=== PATIENT | female | born 1955 | race Caucasian/White ===

== ENCOUNTER 2021-03-03 10:39 | Emergency (ER) | payer OTHER ==
[~2021-03-03] VITALS: Ht 170.2 cm; Wt 131.1 kg
[~2021-03-03 10:39] MED LIST: ABILIFY10 MG PO; ABILIFY15 MG PO; ADVAIR 250-501 EACH; ADVAIR 250-501 EACH INH; ADVAIR 500-501 EACH INH; ADVAIR HFA115 MCG/21 INH; ALPRAZOLAM 0.0.25 M1 PO; ALPRAZOLAM2 MG PO; AMBIEN 10 MG TA10 MG PO; AMBIEN 5 MG TABL5 M1 PO; APAP500 PO; ASA81BEC PO; ASPIRIN EC81 M1 PO; CARISOPRODOL 3350 M1 PO; CARISOPRODOL 3350 MG; CARISOPRODOL 3350 MG PO; CLONAZEPAM 1 MG1 M1 PO; COLACE100 MG PO; COMPAZINE10 M1 PO; COMPAZINE10 MG PO; CRESTOR10 MG PO; DEPAKOTE ER250 MG PO; DEPAKOTE250 MG PO; DEPAKOTE500 MG PO; DESYREL150 MG PO; DICLOFENAC SODI75 MG PO; DIVALPROEX SOD250 MG PO; DUONEB 2.5-0.5 M3 ML INH; EFFEXOR XR150 MG PO; ENDOCET 10-3251 EACH PO; FENTANYL 1100 MCG/HR; FENTANYL 1100 MCG/HR TD; FENTANYL PA12 MCG/HR TP; FENTANYL PATCH75 MCG TP; FENTANYL PATCH75 MCG TRANSDERM; FENTANYL TOP; FLAGYL500 MG PO; GLUCOPHAGE500 MG PO; IBUPROFEN 600600 M1 PO; IMITREX 50 MG T50 M1 PO; IMITREX 50 MG T50 MG PO; IMITREX100 MG; LAMICTAL XR100 MG PO; LAMICTAL100 MG; LEVEMIR SUBQ; LIPITOR 20 MG T20 M1 PO; LOMOTIL 2.5-0.01 TAB PO; MELOXICAM7.5 MG PO; METOCLOPRAMIDE 55 M1 PO; MIRALAX17 GM; MOBIC7.5 M1 PO; MOBIC7.5 MG PO; MORPHINE SULFA100 M1 PO; MORPHINE SULFAT30 M4 PO; MS CONTIN15 MG PO; NEURONTIN 300300 M1; NEURONTIN 300300 M1 PO; NEURONTIN600 MG PO; NIASPAN 500 MG500 M1 PO; NORCO 5-325 TA1 EACH PO; NOVOLOG100 UNIT/1 SQ; NOVOLOG100 UNIT/M; NOVOLOG100 UNIT/M SUBQ; NYSTATIN1 EAC6; OMEPRAZOLE 20 M20 M1 PO; OMEPRAZOLE20 M2 PO; ONDANSETRON HCL4 M2 PO; OXYCODONE HCL10 M1 PO; OXYCODONE HCL15 MG PO; OXYCODONE PO; OXYIR 5 MG CAPSU5 M1 PO; PERCOCET 5-3251 EACH PO; PREDNISONE 10 M10 MG; PRILOSEC 20 MG20 MG PO; PROAIR HFA8.5 GM IH; PROTONIX40 M1 PO; ROXICODONE15 M1 PO; SEROQUEL 50 MG50 MG PO; SYMBICORT160 MCG/4.; TEMAZEPAM30 MG; TOPROL XL50 MG PO; TRAZODONE 150150 M1 PO; VALIUM5 MG PO; VENLAFAXIN75 MG/1 T2 PO; VENLAFAXINE; VENLAFAXINE HC225 MG PO; VENTOLIN HFA 1818 GM; VERAPAMIL ER120 MG PO; VERAPAMIL ER180 M1; VERAPAMIL ER180 M1 PO; VERAPAMIL ER180 MG PO; VITAMIN D400 UNI1 PO; ZIPSOR25 MG PO
[2021-03-03] MEDS ORDERED: GLIPIZIDE 10 MG10 MG PO (11:01)
[2021-03-03] MEDS ORDERED: REGLAN 5 MG TAB5 MG PO (11:01)
[2021-03-03] MEDS ORDERED: FUROSEMIDE 40 M40 MG PO (11:01)
[2021-03-03] MEDS ORDERED: KLOR-CON M2020 MEQ PO (11:02)
[2021-03-03] MEDS ORDERED: OMEPRAZOLE40 MG PO (11:03)
[2021-03-03] MEDS ORDERED: XTAMPZA ER13.5 MG PO (11:03)
[2021-03-03] MEDS ORDERED: BUSPIRONE HCL10 MG PO (11:03)
[2021-03-03] MEDS ORDERED: HYDROXYZINE HCL10 M2 PO (11:04)
[2021-03-03 11:11] LABS: HEMATOCRIT 38.9 % (37.0-47.0); HEMOGLOBIN 11.5 gm/dL (12.0-15.0); MCH 22.9 pg (26.0-34.0); MCHC 29.6 g/dL (28.0-37.0); MCV 77.3 fL (80.0-100.0); PLATELET COUNT 288 thou/uL (150-400); RBC 5.04 mil/uL (4.20-5.00); WBC 11.6 thou/uL (4.0-11.0)
[2021-03-03 11:17] LABS: CALCIUM 9.4 mg/dL (8.5-10.1); CREATININE 0.9 mg/dL (0.6-1.0); POTASSIUM 4.6 mmol/L (3.5-5.1)
[2021-03-03 11:23] LABS: ALBUMIN 3.1 g/dL (3.4-5.0); TOTAL BILIRUBIN 0.2 mg/dL (0.2-1.0); TOTAL PROTEIN 8.2 g/dL (6.4-8.2)
[2021-03-03 12:05] LABS: ABSOLUTE NEUTROPHILS 7.9 thou/uL (1.4-8.2)
[2021-03-03 12:06] LABS: ANISOCYTOSIS 1+
[2021-03-03] MEDS ORDERED: MELOXICAM15 MG PO (14:51)
--- NOTE | 2021-03-03 15:15 | EKG ---
[address] [address] ELECTROCARDIOGRAM REPORT Name: LB CALVILLO Room [facility]: [id number] Admission: 03/03/21 Attend Phys: Discharge: Date of : 59 Report #: [id number] [facility] ED Test Date: 2021-03-03 Test Time: 10:51:45 Pat Name: LB CALVILLO Department: Room: Gender: F Legal Cashier: YAKOV : 1955 Requested By: Margarita Wagner Order Number: [id number] MD: Henry Stewart Measurements Intervals [place] Rate: 120 P: 40 AL: 162 QRS: 108 QRSD: 98 T: 34 QT: 326 QTc: 461 Interpretive Statements Sinus tachycardia Right axis deviation Poor R wave progression Baseline wander in lead(s) II,III,aVR,aVL,aVF,V1,V2,V4,V6 Compared to ECG 05/15/2015 16:17:56 Nonspecific change in the ST and T wave segments Electronically Signed On 03-03-2021 15:15:42 CDT by Henry Stewart [email or web address] <ELECTRONICALLY SIGNED> By: Henry Stewart MD, FACC 03/03/21 1515 1051 [id number] Henry Stewart MD, [facility] /EPI
[2021-03-03 16:41] VITALS: BP 128/91
== END 2021-03-03 16:49 | disposition home or self-care (01) ==
LOC: ER 10:39
PROVIDERS: Emergency Medicine
DX: R10.31 Right lower quadrant pain (principal); R11.0 Nausea; K59.00 Constipation, unspecified; F17.210 Nicotine dependence, cigarettes, uncomplicated; E11.9 Type 2 diabetes mellitus without complications; J44.9 Chronic obstructive pulmonary disease, unspecified; I10 Essential (primary) hypertension; E11.40 Type 2 diabetes mellitus with diabetic neuropathy, unspecified; Z88.1 Allergy status to other antibiotic agents; Z79.899 Other long term (current) drug therapy; Z79.82 Long term (current) use of aspirin